=== PATIENT | female | born 1990 | race Caucasian/White ===

== ENCOUNTER 2017-07-06 02:01 | Emergency (ER) | payer OTHER | END 2017-07-06 05:08 | disposition home or self-care (01) | LOC: M ED 02:01 | DX: R07.89 Other chest pain (principal); Z82.49 Family history of ischemic heart disease and other diseases of the circulatory system | CPT/HCPCS: 99284 ==

== ENCOUNTER → 2018-07-20 | Outpatient (REF) | payer OTHER ==
[~2018-07-20] MED LIST: NAPR-885 PO; PRENTAB45 PO
[2018-07-20 21:41] LABS: URINE PREG TEST INDETERM. (NEGATIVE)
== END ==
LOC: M LAB REF 09:57
PROVIDERS: ATTEND Physician Assistant Medical
DX: N91.2 Amenorrhea, unspecified (principal); N39.0 Urinary tract infection, site not specified

== ENCOUNTER 2018-08-04 17:17 | Emergency (ER) | payer OTHER ==
[~2018-08-04] VITALS: Ht 165.1 cm; Wt 76.4 kg
[2018-08-04 17:17] VITALS: BP 132/71
[2018-08-04] MEDS ORDERED: NITR100C2 (17:24)
[2018-08-04] MEDS ORDERED: BACT800T5 PO (19:33)
[2018-08-04] MEDS ORDERED: KETO10TAB PO (19:38)
[2018-08-04] MEDS ORDERED: KETOROLAC TROMETHAMINE 10 MG TAB PO ONE (19:45)
== END 2018-08-04 19:55 | disposition home or self-care (01) ==
LOC: M ED 17:17
DX: N75.1 Abscess of Bartholin's gland (principal); Z79.899 Other long term (current) drug therapy

== ENCOUNTER → 2018-08-08 | Outpatient (REF) | payer OTHER ==
[~2018-08-08] MED LIST changes: +BACT800T5 PO; +KETO10TAB PO; +NITR100C2
== END ==
LOC: M LAB REF 12:55
PROVIDERS: ATTEND Obstetrics & Gynecology
DX: N75.0 Cyst of Bartholin's gland (principal)

== ENCOUNTER 2018-09-19 07:48 | Day surgery (SDC) | payer OTHER ==
[~2018-09-19] VITALS: Ht 160 cm; Wt 72.6 kg
[~2018-09-19 07:48] MED LIST changes: +LIDOCAINE 1% MDV 20ML VIAL SQ PRN; +LR 1,000 ML IV ONE
[2018-09-19 08:18] LABS: HEMATOCRIT 38.4 % (36.0-47.0); HEMOGLOBIN 12.3 g/dl (12.0-15.5); MEAN CORPUSCULAR HEMOGLOBIN 27.3 pg (27.0-33.0); MEAN CORPUSCULAR VOLUME 85.1 fl (80.0-96.0); PLATELET COUNT, AUTOMATED 277 10^3/uL (150-450); RED BLOOD COUNT 4.51 10^6/uL (4.00-5.40); WHITE BLOOD COUNT 8.7 10^3/uL (4.0-10.0)
[2018-09-19 08:26] LABS: URINE PREG TEST NEGATIVE (NEGATIVE)
[2018-09-19] MEDS ORDERED: ONDANSETRON 4MG/2ML VIAL (J2405) As Ordered ONE (09:07)
[2018-09-19] MEDS ORDERED: LIDOCAINE 2% INJ 100 MG/5 ML SDV (FOR ANES.) As Ordered ONE (09:07)
[2018-09-19] MEDS ORDERED: dexameTHASONE 4 MG/ML 1ML VIAL (J1100) As Ordered ONE (09:07)
[2018-09-19] MEDS ORDERED: PROPOFOL 200 MG/20 ML VIAL As Ordered ONE (09:07)
[2018-09-19] MEDS ORDERED: fentaNYL 100 MCG/2 ML INJECTION (J3010) As Ordered ONE ×2 (09:08→10:46)
[2018-09-19] MEDS ORDERED: MIDAZOLAM INJ 2 MG/2 ML VIAL (J2250) As Ordered ONE (09:08)
[2018-09-19] MEDS ORDERED: ACETAMINOPHEN 1000MG 100ML IV BTL (OFIRMEV) (J0131 PER 10MG) As Ordered ONE (09:51)
[2018-09-19] MEDS ORDERED: KETOROLAC 60 MG/2 ML VIAL (J1885) As Ordered ONE (10:03)
[2018-09-19] MEDS ORDERED: IBUP80TA PO (10:38)
[2018-09-19] MEDS: fentaNYL 100 MCG/2 ML INJECTION (J3010) IV PRN ×4 (10:45→11:00)
--- NOTE | 2018-09-19 10:48 | RO ---
DATE OF PROCEDURE: 09/19/2018 Ary is a 27-year-old female with a recurrent right Bartholin gland abscess. After counseling in the office and a course of antibiotic, a decision was made to proceed with irrigation and debridement of the Bartholin cyst and marsupialization of the cyst. PREOPERATIVE DIAGNOSIS: Recurrent right Bartholin abscess. POSTOPERATIVE DIAGNOSIS: Recurrent right Bartholin abscess. PROCEDURE: 1. Removal of the right Bartholin abscess/cyst. 2. Marsupialization of right Bartholin gland. SURGEON: Dr. Manuel Nichols TIPPLE TENDER: ANESTHESIA: General. COMPLICATIONS: None. ESTIMATED BLOOD LOSS: Less than 100 mL. SPECIMEN SENT TO LAB: Right Bartholin abscess and gland. DESCRIPTION OF PROCEDURE: After visiting with the patient in the waiting room and reaffirming informed consent, the patient was taken to the operating room where general anesthetic was found to be adequate. She was then draped and prepped in the usual sterile fashion in the dorsal lithotomy position. Bowden catheter was placed in the bladder for drainage. We then examined the patient under anesthesia. A right Bartholin abscess was noted. At this point using a 5 blade, a midline incision was made and the cyst/abscess was then shelled out all the way down to the main vessels. These vessels were then cauterized and the abscess and gland was removed well encapsulated without rupturing. We then ruptured the cyst/abscess on the back table. Cultures were done and sent to pathology. At this point with the Bovie the crater of the gland/abscess was then cauterized and the area was then marsupialized with multiple layers of sutures to make sure that all the bleeding was stopped. The vaginal mucosa was then closed loosely to allow drainage of the gland/abscess. The area was copiously irrigated with normal saline. Good hemostasis noted. All instruments removed and the patient was then transferred to recovery room in stable condition.
[2018-09-19] MEDS ORDERED: METOCLOPRAMIDE INJ 10MG/2ML VIAL (J2765) IV PRN (11:15)
[2018-09-19] MEDS ORDERED: PERCOCET 5MG/325MG TAB PO PRN ×2 (11:15)
[2018-09-19] MEDS ORDERED: KETOROLAC 30 MG/ML VIAL (J1885) IV PRN (11:15)
[2018-09-19] MEDS ORDERED: LR 1,000 ML IV SCH (11:15)
[2018-09-19] MEDS ORDERED: ONDANSETRON 4MG/2ML VIAL (J2405) IV PRN (11:15)
[2018-09-19 11:55] VITALS: BP 108/62
[2018-09-19] MEDS ORDERED: IBUPROFEN 800 MG TAB PO SCH (16:00)
== END 2018-09-19 12:25 | disposition home or self-care (01) ==
LOC: M SDC 07:48
PROVIDERS: ATTEND Obstetrics & Gynecology
DX: N75.1 Abscess of Bartholin's gland (principal); N75.0 Cyst of Bartholin's gland
CPT/HCPCS: 36415; 56440; 84703; 85027; 86850; 86900; 86901; 87070; 87075; 87205; 88304; J0131; J0690; J1100; J1885; J2250; J2405; J3010

== ENCOUNTER → 2019-08-27 | Outpatient (REF) | payer OTHER ==
[~2019-08-27] MED LIST changes: +IBUP80TA PO; -LIDOCAINE 1% MDV 20ML VIAL SQ PRN; -LR 1,000 ML IV ONE
== END ==
LOC: M LAB REF 11:13
PROVIDERS: ATTEND Obstetrics & Gynecology
DX: Z72.51 High risk heterosexual behavior (principal)

== ENCOUNTER → 2020-10-10 | Outpatient (REF) | payer OTHER ==
[2020-10-10 17:01] LABS: APPEARANCE, URINE HAZY (CLEAR); BACTERIA, URINE AUTO NEGATIVE (NEGATIVE); BILIRUBIN, URINE AUTO NEGATIVE (NEGATIVE); BLOOD, URINE BLOOD NEGATIVE (NEGATIVE); COLOR, URINE AMBER (YELLOW); GLUCOSE, URINE (UA) AUTO NEGATIVE (NEGATIVE); KETONE, URINE AUTO NEGATIVE (NEGATIVE); LEUKOCYTE ESTERASE, URINE AUTO TRACE (NEGATIVE); MUCUS, URINE SMALL (NEGATIVE); NITRITE, URINE AUTO NEGATIVE (NEGATIVE); PROTEIN, URINE AUTO 1+ mg/dL (NEGATIVE); RBC, URINE AUTO 1 /HPF (0-3); SPECIFIC GRAVITY URINE AUTO 1.034 (1.002-1.035); SQUAMOUS EPITHELIAL CELL UR AU 3 /HPF (0-6); UROBILINOGEN, URINE AUTO 0.2 mg/dL (0.0-2.0); WBC, URINE AUTO 2 /HPF (0-3)
== END ==
LOC: M LAB REF 16:17
PROVIDERS: ATTEND Physician Assistant Medical
DX: N39.0 Urinary tract infection, site not specified (principal)

== ENCOUNTER 2020-10-25 03:33 | Emergency (ER) | payer OTHER ==
[~2020-10-25] VITALS: Ht 162.6 cm; Wt 80.3 kg
[2020-10-25 03:33] VITALS: BP 138/81
== END 2020-10-25 06:56 | disposition left against medical advice (07) ==
LOC: M ED 03:33
DX: Z53.21 Procedure and treatment not carried out due to patient leaving prior to being seen by health care provider (principal)

== ENCOUNTER → 2021-07-28 | Outpatient (CLI) | payer OTHER ==
[~2021-07-28] MED LIST changes: +DEPO150I IM
== END ==
LOC: M LABSMTC 11:17
PROVIDERS: ATTEND Anesthesiology
DX: Z01.812 Encounter for preprocedural laboratory examination (principal); Z20.822 Contact with and (suspected) exposure to COVID-19

== ENCOUNTER 2021-08-02 14:29 | Day surgery (SDC) | payer OTHER ==
[~2021-08-02] VITALS: Ht 162.6 cm; Wt 88.0 kg
[~2021-08-02 14:29] MED LIST changes: +LR 1,000 ML IV ONE
[2021-08-02] MEDS ORDERED: ROCURONIUM BROMIDE 50 MG/5 ML VIAL As Ordered ONE (16:21)
[2021-08-02] MEDS ORDERED: propofoL 200 MG/20 ML VIAL As Ordered ONE (16:21)
[2021-08-02] MEDS ORDERED: fentaNYL 100 MCG/2 ML INJECTION As Ordered ONE (16:21)
[2021-08-02] MEDS ORDERED: MIDAZOLAM INJ 2MG/2ML VIAL (J2250 PER 1MG) As Ordered ONE (16:21)
[2021-08-02] MEDS ORDERED: LIDOCAINE 2% 100MG/5ML SDV (FOR ANES.) As Ordered ONE (16:21)
[2021-08-02] MEDS ORDERED: BUPIVACAINE/EPIN 0.5% 30 ML VIAL As Ordered ONE (16:40)
[2021-08-02] MEDS ORDERED: dexameTHASONE 4 MG/ML 1ML VIAL (J1100 PER 1MG) As Ordered ONE (17:10)
[2021-08-02] MEDS ORDERED: HYDROmorphone HCL 2MG/ML 1ML VIAL As Ordered ONE (17:10)
[2021-08-02] MEDS ORDERED: KETOROLAC 60MG 2ML VIAL As Ordered ONE (17:13)
[2021-08-02] MEDS ORDERED: ONDANSETRON 4MG/2ML VIAL As Ordered ONE (17:13)
[2021-08-02] MEDS ORDERED: ACETAMINOPHEN 1000MG 100ML IV BTL (OFIRMEV) (J0131 PER 10MG) As Ordered ONE (17:13)
[2021-08-02] MEDS ORDERED: METOCLOPRAMIDE INJ 10MG/2ML VIAL (J2765 PER 1) As Ordered ONE (17:13)
[2021-08-02] MEDS ORDERED: BUPIVACAINE/EPIN 0.25% 30 ML VIAL As Ordered ONE (17:16)
[2021-08-02] MEDS ORDERED: HYDROMORPHONE HCL 0.5 MG/ 0.5 ML SYRINGE (J1170 PER 1) IV PRN (18:00)
[2021-08-02] MEDS ORDERED: LR 1,000 ML IV SCH ×2 (18:00→18:05)
[2021-08-02] MEDS ORDERED: oxyCODONE 5MG TAB PO PRN (18:00)
[2021-08-02] MEDS ORDERED: ONDANSETRON 4MG/2ML VIAL IV PRN (18:00)
[2021-08-02] MEDS ORDERED: fentaNYL 100 MCG/2 ML INJECTION IV PRN (18:00)
[2021-08-02] MEDS ORDERED: PERCOCET 5MG/325MG TAB PO PRN (18:05)
[2021-08-02 18:45] VITALS: BP 116/61
[2021-08-03] MEDS ORDERED: IBUPROFEN 600MG TAB PO SCH
[2021-08-03] MEDS ORDERED: IBUPROFEN 800 MG TAB PO SCH
== END 2021-08-02 19:09 | disposition home or self-care (01) ==
LOC: M SDC 14:29
PROVIDERS: ATTEND Obstetrics & Gynecology
DX: Z30.2 Encounter for sterilization (principal); K21.9 Gastro-esophageal reflux disease without esophagitis; F41.9 Anxiety disorder, unspecified; F81.0 Specific reading disorder
CPT/HCPCS: 58661; 81025; 88302; J0131; J1100; J1170; J1885; J2250; J2405; J2765; J3010

== ENCOUNTER → 2022-01-11 | Outpatient (REF) | payer OTHER ==
[~2022-01-11] MED LIST changes: -LR 1,000 ML IV ONE
== END ==
LOC: M LAB REF 16:19
PROVIDERS: ATTEND Nurse Practitioner Family
DX: R94.6 Abnormal results of thyroid function studies (principal)

== ENCOUNTER → 2022-01-30 | Outpatient (REF) | payer OTHER, MEDICAID ==
[2022-01-30 14:25] LABS: CHOLESTEROL RISK RATIO 6.838 (<5)
== END ==
LOC: M LAB REF 12:06
PROVIDERS: ATTEND Nurse Practitioner Family
DX: Z79.899 Other long term (current) drug therapy (principal); E66.3 Overweight

== ENCOUNTER → 2022-05-01 | Outpatient (REF) | payer OTHER, MEDICAID ==
[2022-05-01 12:25] LABS: CHOLESTEROL RISK RATIO 5.12 (<5); HDL CHOLESTEROL 41.6 MG/DL (>40)
== END ==
LOC: M LAB REF 11:22
PROVIDERS: ATTEND Nurse Practitioner Family
DX: E78.5 Hyperlipidemia, unspecified (principal)

== ENCOUNTER → 2022-08-09 | Outpatient (REF) | payer OTHER, MEDICAID ==
[2022-08-09 14:31] LABS: CHOLESTEROL RISK RATIO 5.33 (<5); HDL CHOLESTEROL 35.6 MG/DL (>40); LDL CHOLESTEROL 107.6 MG/DL (<100); NON-HDL-C 154.4 MG/DL
== END ==
LOC: M LAB REF 12:53
PROVIDERS: ATTEND Nurse Practitioner Family
DX: E78.5 Hyperlipidemia, unspecified (principal)

== ENCOUNTER → 2022-08-15 | Outpatient (CLI) | payer OTHER | LOC: M RAD 12:02 | PROVIDERS: ATTEND Nurse Practitioner Family | DX: R07.9 Chest pain, unspecified (principal) ==

== ENCOUNTER → 2022-11-15 | Outpatient (REF) | payer OTHER ==
[2022-11-15 16:57] LABS: CHOLESTEROL RISK RATIO 6.08 (<5); HDL CHOLESTEROL 39.3 MG/DL (>40); LDL CHOLESTEROL 168.9 MG/DL (<100); NON-HDL-C 199.7 MG/DL
== END ==
LOC: M LAB REF 16:19
PROVIDERS: ATTEND Nurse Practitioner Family
DX: E78.5 Hyperlipidemia, unspecified (principal)

== ENCOUNTER → 2023-01-14 | Outpatient (REF) | payer OTHER ==
[2023-01-15 00:37] LABS: HIV 1&2 SCREEN NEGATIVE (NEGATIVE)
== END ==
LOC: M LAB REF 12:40
PROVIDERS: ATTEND Advanced Practice Midwife
DX: Z01.419 Encounter for gynecological examination (general) (routine) without abnormal findings (principal)

== ENCOUNTER → 2023-02-28 | Outpatient (REF) | payer OTHER ==
[2023-02-28 13:16] LABS: CHOLESTEROL RISK RATIO 5.85 (<5); HDL CHOLESTEROL 36.2 MG/DL (>40); LDL CHOLESTEROL 133.4 MG/DL (<100); NON-HDL-C 175.8 MG/DL
== END ==
LOC: M LAB REF 12:17
PROVIDERS: ATTEND Nurse Practitioner Family
DX: E78.5 Hyperlipidemia, unspecified (principal)

== ENCOUNTER → 2023-04-16 | Outpatient (REF) | payer OTHER ==
[2023-04-16 19:22] LABS: HIV 1&2 SCREEN NEGATIVE (NEGATIVE)
== END ==
LOC: M LAB REF 16:53
PROVIDERS: ATTEND Advanced Practice Midwife
DX: Z01.419 Encounter for gynecological examination (general) (routine) without abnormal findings (principal)

== ENCOUNTER → 2023-09-19 | Outpatient (REF) | payer OTHER ==
[2023-09-19 12:35] LABS: BASO # 0.1 10^3/uL (0.0-0.2); BASO % 0.7 % (0.0-1.0); EOS # 0.1 10^3/uL (0.0-0.5); EOS % 1.5 % (0.0-3.0); HEMATOCRIT 39.4 % (36.0-47.0); HEMOGLOBIN 12.7 g/dl (12.0-15.5); LYMPH # 1.3 10^3/uL (1.5-5.0); LYMPH % 15.7 % (24.0-44.0); MEAN CORPUSCULAR HEMOGLOBIN 26.7 pg (27.0-33.0); MEAN CORPUSCULAR HGB CONC 32.2 g/dl (32.0-36.5); MEAN CORPUSCULAR VOLUME 82.9 fl (80.0-96.0); MONO # 0.7 10^3/uL (0.0-0.8); MONO % 8.6 % (2.0-8.0); NEUTROPHILS # 6.1 10^3/uL (1.5-8.5); NEUTROPHILS % 73.1 % (36.0-66.0); PLATELET COUNT, AUTOMATED 304 10^3/uL (150-450); RED BLOOD COUNT 4.75 10^6/uL (4.00-5.40); WHITE BLOOD COUNT 8.4 10^3/uL (4.0-10.0)
[2023-09-19 13:05] LABS: ALBUMIN 4.2 G/DL (3.2-5.2); ALKALINE PHOSPHATASE 66 U/L (46-116); ALT/SGPT 18 U/L (7.0-40); AST/SGOT < 8 U/L (<34); BILIRUBIN,TOTAL 0.4 MG/DL (0.3-1.2); BLOOD UREA NITROGEN 13 MG/DL (9-23); CALCIUM LEVEL 9.5 MG/DL (8.5-10.1); CARBON DIOXIDE LEVEL 26 MMOL/L (20-31); CHLORIDE LEVEL 108 MMOL/L (98-107); CHOLESTEROL LEVEL 196 MG/DL (<200); CHOLESTEROL RISK RATIO 5.55 (<5); CREATININE FOR GFR 0.75 MG/DL (0.55-1.30); GLOMERULAR FILTRATION RATE > 60.0 (>60); GLUCOSE, FASTING 103 MG/DL (60-100); HDL CHOLESTEROL 35.3 MG/DL (>40); LDL CHOLESTEROL 108.1 MG/DL (<100); MAGNESIUM LEVEL 1.8 MG/DL (1.8-2.4); NON-HDL-C 160.7 MG/DL; POTASSIUM SERUM 4.4 MMOL/L (3.5-5.1); SODIUM LEVEL 139 MMOL/L (136-145); THYROID STIMULATING HORMONE 5.668 uIU/ML (0.55-4.78); TOTAL PROTEIN 7.4 G/DL (5.7-8.2); TRIGLYCERIDES LEVEL 263 MG/DL (<150)
[2023-09-19 13:06] LABS: TOTAL 25(OH) VITAMIN D 23.8 NG/ML (20.0-100.0)
== END ==
LOC: M LAB REF 11:35
PROVIDERS: ATTEND Nurse Practitioner Family
DX: E66.9 Obesity, unspecified (principal); E55.9 Vitamin D deficiency, unspecified

== ENCOUNTER → 2023-10-09 | Outpatient (REF) | payer OTHER, MEDICAID ==
[2023-10-09 19:14] LABS: FREE T4 1.1 NG/DL (0.89-1.76); THYROID STIMULATING HORMONE 4.273 uIU/ML (0.55-4.78)
== END ==
LOC: M LAB REF 16:34
PROVIDERS: ATTEND Nurse Practitioner Family
DX: R89.1 Abnormal level of hormones in specimens from other organs, systems and tissues (principal)

== ENCOUNTER → 2023-10-28 | Outpatient (CLI) | payer OTHER | LOC: M RAD 14:25 | PROVIDERS: ATTEND Nurse Practitioner Family | DX: R89.1 Abnormal level of hormones in specimens from other organs, systems and tissues (principal) ==

== ENCOUNTER → 2024-01-14 | Outpatient (REF) | payer OTHER, MEDICAID ==
[2024-01-14 14:15] LABS: CHOLESTEROL RISK RATIO 5.2 (<5); HDL CHOLESTEROL 36.1 MG/DL (>40); LDL CHOLESTEROL 134.1 MG/DL (<100); NON-HDL-C 151.9 MG/DL
== END ==
LOC: M LAB REF 13:31
PROVIDERS: ATTEND Nurse Practitioner Family
DX: E78.5 Hyperlipidemia, unspecified (principal)

== ENCOUNTER → 2024-05-25 | Outpatient (REF) | payer OTHER, MEDICAID ==
[2024-05-25 13:12] LABS: ALBUMIN 4.2 G/DL (3.2-5.2); ALKALINE PHOSPHATASE 59 U/L (35-104); ALT/SGPT 20 U/L (7.0-40); AST/SGOT < 8 U/L (<34); BILIRUBIN,TOTAL 0.4 MG/DL (0.3-1.2); BLOOD UREA NITROGEN 15 MG/DL (9-23); CALCIUM LEVEL 9.6 MG/DL (8.5-10.1); CARBON DIOXIDE LEVEL 23 MMOL/L (20-31); CHLORIDE LEVEL 110 MMOL/L (98-107); CHOLESTEROL LEVEL 209 MG/DL (<200); CHOLESTEROL RISK RATIO 4.96 (<5); CREATININE FOR GFR 0.84 MG/DL (0.55-1.30); GLOMERULAR FILTRATION RATE > 60.0 (>60); GLUCOSE, FASTING 97 MG/DL (60-100); HDL CHOLESTEROL 42.1 MG/DL (>40); LDL CHOLESTEROL 149.3 MG/DL (<100); NON-HDL-C 166.9 MG/DL; POTASSIUM SERUM 4.8 MMOL/L (3.5-5.1); SODIUM LEVEL 140 MMOL/L (136-145); TOTAL PROTEIN 7.8 G/DL (5.7-8.2); TRIGLYCERIDES LEVEL 88 MG/DL (<150)
== END ==
LOC: M LAB REF 12:11
PROVIDERS: ATTEND Nurse Practitioner Family
DX: E78.5 Hyperlipidemia, unspecified (principal)

== ENCOUNTER → 2024-10-08 | Outpatient (REF) | payer MEDICAID, OTHER ==
[2024-10-08 18:17] LABS: ALT/SGPT 28 U/L (7.0-40); AST/SGOT 19 U/L (<34); CALCIUM LEVEL 9.2 MG/DL (8.5-10.1); CARBON DIOXIDE LEVEL 24 MMOL/L (20-31); CHLORIDE LEVEL 105 MMOL/L (98-107); CHOLESTEROL LEVEL 183 MG/DL (<200); CHOLESTEROL RISK RATIO 4.37 (<5); CREATININE FOR GFR 0.79 MG/DL (0.55-1.30); GLOMERULAR FILTRATION RATE > 90.0 (>60); LDL CHOLESTEROL 126.2 MG/DL (<100); MAGNESIUM LEVEL 2.0 MG/DL (1.8-2.4); NON-HDL-C 141.2 MG/DL; POTASSIUM SERUM 4.7 MMOL/L (3.5-5.1); SODIUM LEVEL 141 MMOL/L (136-145); TRIGLYCERIDES LEVEL 75 MG/DL (<150)
[2024-10-08 18:20] LABS: TOTAL 25(OH) VITAMIN D 31.3 NG/ML (20.0-100.0)
[2024-10-08 18:35] LABS: BASO # 0.1 10^3/uL (0.0-0.2); BASO % 0.6 % (0.0-1.0); EOS # 0.1 10^3/uL (0.0-0.5); EOS % 1.5 % (0.0-3.0); LYMPH # 1.2 10^3/uL (1.5-5.0); LYMPH % 15.5 % (24.0-44.0); MONO # 0.6 10^3/uL (0.0-0.8); MONO % 7.2 % (2.0-8.0); NEUTROPHILS # 5.8 10^3/uL (1.5-8.5); NEUTROPHILS % 74.9 % (36.0-66.0); PLATELET COUNT, AUTOMATED 300 10^3/uL (150-450)
[2024-10-08 18:57] LABS: ESTIMATED AVERAGE GLUCOSE 97.0 MG/DL (60-110)
== END ==
LOC: M LAB REF 17:03
PROVIDERS: ATTEND Nurse Practitioner Family
DX: E78.5 Hyperlipidemia, unspecified (principal); E55.9 Vitamin D deficiency, unspecified; E66.9 Obesity, unspecified